=== PATIENT | male | born 1950 | race Two or more races ===

== ENCOUNTER 2018-05-06 08:21 | Outpatient (CLI) | payer OTHER | END 2018-05-06 11:17 | disposition home or self-care (01) | LOC: TOM 08:21 | DX: R13.19 Other dysphagia (principal) | CPT/HCPCS: 70491; Q9965 ==

== ENCOUNTER 2018-08-04 07:48 | Outpatient (CLI) | payer OTHER | END 2018-08-04 08:00 | disposition home or self-care (01) | LOC: SONOGRAMA 07:48 | DX: E03.8 Other specified hypothyroidism (principal); E04.1 Nontoxic single thyroid nodule ==

== ENCOUNTER 2018-10-28 08:19 | Outpatient (CLI) | payer OTHER | END 2018-10-28 08:24 | disposition home or self-care (01) | LOC: SONOGRAMA 08:19 | DX: E04.1 Nontoxic single thyroid nodule (principal) ==

== ENCOUNTER 2018-11-18 09:23 | Outpatient (CLI) | payer OTHER ==
[~2018-11-18] VITALS: Ht 182.9 cm; Wt 108.9 kg
== END 2018-11-18 09:40 | disposition home or self-care (01) ==
LOC: OFIC 805 09:23
DX: R22.1 Localized swelling, mass and lump, neck (principal); E04.1 Nontoxic single thyroid nodule

== ENCOUNTER 2018-11-24 07:21 | Outpatient (CLI) | payer OTHER ==
[~2018-11-24] VITALS: Ht 182.9 cm; Wt 108.9 kg
== END 2018-11-24 07:40 | disposition home or self-care (01) ==
LOC: OFIC 805 07:21
DX: R22.1 Localized swelling, mass and lump, neck (principal); E04.1 Nontoxic single thyroid nodule

== ENCOUNTER 2018-11-25 07:19 | Outpatient (CLI) | payer OTHER | END 2018-11-25 07:28 | disposition home or self-care (01) | LOC: SONOGRAMA 07:19 | DX: D17.0 Benign lipomatous neoplasm of skin and subcutaneous tissue of head, face and neck (principal) ==